=== PATIENT | female | born 1975 | race Caucasian/White ===

== ENCOUNTER 2018-02-26 12:25 | Emergency (ER) | payer MEDICAID ==
[~2018-02-26] VITALS: Ht 162.6 cm; Wt 70.5 kg
[~2018-02-26 12:25] MED LIST: RISP3 PO
[2018-02-26] MEDS ORDERED: BENZ1TAB10 PO (13:18)
[2018-02-26 15:20] VITALS: BP 139/96
== END 2018-02-26 15:25 | disposition home or self-care (01) ==
LOC: EMS 12:26
DX: F20.9 Schizophrenia, unspecified (principal)

== ENCOUNTER → 2020-08-23 | Outpatient (CLI) | payer MEDICAID ==
[~2020-08-23] MED LIST changes: +BENZ1TAB10 PO; -RISP3 PO; +RISP3TAB35 PO
[2020-08-23 17:28] LABS: BASOPHILS % (AUTO) 0.4 % (0.0-2.0); EOSINOPHILS % (AUTO) 4.7 % (1.0-6.0); HEMOGLOBIN 11.6 g/dL (12.0-16.0); MEAN CORPUSCULAR HEMOGLOBIN 25.3 pg (26.0-34.0); MEAN CORPUSCULAR HGB CONC 32.2 G/dL (31.0-37.0); MEAN CORPUSCULAR VOLUME 79 fL (80-100); MONOCYTES # (AUTO) 0.7 K/uL (0.1-1.0); NEUTROPHILS % (AUTO) 49.9 % (40.0-70.0); PLATELET COUNT (AUTO) 274 K/uL (150-450); RED BLOOD CELL COUNT(AUTO) 4.58 MIL/uL (4.00-5.20); RED CELL DISTRIBUTION WIDTH 15.3 % (11.5-14.5)
[2020-08-23 17:45] LABS: ALANINE AMINOTRANSFERASE 51 U/L (12-78); ALBUMIN 3.6 g/dL (3.4-5.0); ALKALINE PHOSPHATASE 106 U/L (46-116); ANION GAP 11 mmol/L (8-16); ASPARTATE AMINOTRANSFERASE 29 U/L (15-37); BILIRUBIN,TOTAL 0.5 mg/dL (0.1-1.0); CALCIUM, TOTAL 8.6 mg/dL (8.8-10.5); CARBON DIOXIDE 26 mmol/L (22-29); CHLORIDE 104 mmol/L (98-107); GLOMERULAR FILTR. RATE CALC > 60 mL/min (>60); GLUCOSE,RANDOM 103 mg/dL (70-110); POTASSIUM 3.5 mmol/L (3.5-5.1); SODIUM SERUM 141 mmol/L (136-145); TOTAL PROTEIN, SERUM 7.8 g/dL (6.4-8.2); UREA NITROGEN, BLOOD 5 mg/dL (7-18)
[2020-08-23 17:47] LABS: HEMOGLOBIN A1C 7.2 % (3.8-5.6)
[2020-08-24 19:06] LABS: LDL CHOLESTEROL DIRECT 73 mg/dL (0-99)
== END | disposition home or self-care (01) ==
LOC: LABMN 16:49
PROVIDERS: ATTEND Psychiatry & Neurology Psychiatry
DX: F20.9 Schizophrenia, unspecified (principal)
CPT/HCPCS: 80053; 83036; 83721; 85025